=== PATIENT | female | born 1980 | race Two or more races ===

== ENCOUNTER 2017-10-18 13:51 | Inpatient (IN) | payer OTHER ==
[~2017-10-18] VITALS: Ht 160 cm; Wt 85.7 kg
[2017-10-18] MEDS ORDERED: PRENATAL TABLE1 EAC1 PO (15:44)
[2017-10-18] MEDS ORDERED: ASA81 MG PO (15:48)
== END 2017-10-19 14:02 | disposition home or self-care (01) | DRG 780 ==
LOC: LDR 13:51
PROC: 4A1HXCZ Monitoring of Products of Conception, Cardiac Rate, External Approach (ICD-10-PCS; principal; 2017-10-18)
DX: O47.03 False labor before 37 completed weeks of gestation, third trimester (principal); O14.03 Mild to moderate pre-eclampsia, third trimester; O24.410 Gestational diabetes mellitus in pregnancy, diet controlled

== ENCOUNTER 2017-11-06 12:21 | Inpatient (IN) | payer OTHER ==
[~2017-11-06] VITALS: Ht 160 cm; Wt 3.2 kg
[~2017-11-06 12:21] MED LIST: ASA81 MG PO; PRENATAL TABLE1 EAC1 PO
[2017-11-12] MEDS ORDERED: DOCUSATE SODIU100 MG PO (10:58)
[2017-11-12] MEDS ORDERED: NABUMETONE750 MG PO (10:58)
[2017-11-12] MEDS ORDERED: Ferro-Plex CAPLET PO (10:58)
[2017-11-12] MEDS ORDERED: ALDOMET500 MG PO (10:58)
== END 2017-11-12 14:07 | disposition home or self-care (01) | DRG 766 ==
LOC: OBS/DEL 12:21 → LDR 11-07 11:02 → OB/GYN 11-09 13:47
PROC: 10D00Z1 Extraction of Products of Conception, Low, Open Approach (ICD-10-PCS; principal; 2017-11-07)
PROC: 3E0P7VZ Introduction of Hormone into Female Reproductive, Via Natural or Artificial Opening (ICD-10-PCS; 2017-11-07)
PROC: 3E033VJ Introduction of Other Hormone into Peripheral Vein, Percutaneous Approach (ICD-10-PCS; 2017-11-07)
PROC: 4A1HXCZ Monitoring of Products of Conception, Cardiac Rate, External Approach (ICD-10-PCS; 2017-11-07)
DX: O61.0 Failed medical induction of labor (principal); O24.420 Gestational diabetes mellitus in childbirth, diet controlled; O13.4 Gestational [pregnancy-induced] hypertension without significant proteinuria, complicating childbirth; Z3A.38 38 weeks gestation of pregnancy; Z37.0 Single live birth; O09.513 Supervision of elderly primigravida, third trimester

== ENCOUNTER 2018-06-21 08:22 | Outpatient (CLI) | payer OTHER ==
[~2018-06-21 08:22] MED LIST changes: +ALDOMET500 MG PO; +DICLOFENAC POTA50 MG PO; +DOCUSATE SODIU100 MG PO; +Ferro-Plex CAPLET PO; +NABUMETONE750 MG PO
== END 2018-06-21 08:58 | disposition home or self-care (01) ==
LOC: NUCLEAR 08:22
DX: I87.2 Venous insufficiency (chronic) (peripheral) (principal)

== ENCOUNTER 2018-09-16 09:25 | Emergency (ER) | payer OTHER ==
[~2018-09-16] VITALS: Ht 160 cm; Wt 72.6 kg
== END 2018-09-16 15:46 | disposition home or self-care (01) ==
LOC: ER 09:25
DX: K29.70 Gastritis, unspecified, without bleeding (principal)

== ENCOUNTER → 2019-11-27 | Outpatient (CLI) | payer OTHER | END | disposition home or self-care (01) | LOC: PRENATAL 11-24 13:30 | PROVIDERS: ATTEND Obstetrics & Gynecology Maternal & Fetal Medicine | DX: O36.80X1 Pregnancy with inconclusive fetal viability, fetus 1 (principal); O09.521 Supervision of elderly multigravida, first trimester; O34.211 Maternal care for low transverse scar from previous cesarean delivery; Z36.89 Encounter for other specified antenatal screening; Z3A.14 14 weeks gestation of pregnancy ==

== ENCOUNTER → 2020-01-10 | Outpatient (CLI) | payer OTHER | END | disposition home or self-care (01) | LOC: PRENATAL 01-08 13:00 | PROVIDERS: ATTEND Obstetrics & Gynecology Maternal & Fetal Medicine | DX: O35.0XX1 Maternal care for (suspected) central nervous system malformation in fetus, fetus 1 (principal); O09.522 Supervision of elderly multigravida, second trimester; O34.211 Maternal care for low transverse scar from previous cesarean delivery; O35.3XX1 Maternal care for (suspected) damage to fetus from viral disease in mother, fetus 1; O98.512 Other viral diseases complicating pregnancy, second trimester; Z36.89 Encounter for other specified antenatal screening; Z3A.20 20 weeks gestation of pregnancy ==

== ENCOUNTER 2020-05-15 14:58 | Inpatient (IN) | payer OTHER ==
[~2020-05-15] VITALS: Ht 160 cm; Wt 3.2 kg
[2020-05-15] MEDS ORDERED: PRENATAL CAPLE1 EAC1 PO (17:32)
== END 2020-05-18 16:11 | disposition home or self-care (01) | DRG 785 ==
LOC: LDR 14:58 → OB/GYN 14:58 → O/R 18:18 → OB/GYN 19:18
PROVIDERS: ADMIT Obstetrics & Gynecology; ATTEND Obstetrics & Gynecology
PROC: 0UB70ZZ Excision of Bilateral Fallopian Tubes, Open Approach (ICD-10-PCS; 2020-05-15)
PROC: 4A1HXFZ Monitoring of Products of Conception, Cardiac Rhythm, External Approach (ICD-10-PCS; 2020-05-15)
PROC: 10D00Z1 Extraction of Products of Conception, Low, Open Approach (ICD-10-PCS; principal; 2020-05-15 17:15)
DX: O34.211 Maternal care for low transverse scar from previous cesarean delivery (principal); O13.4 Gestational [pregnancy-induced] hypertension without significant proteinuria, complicating childbirth; Z30.2 Encounter for sterilization; Z37.0 Single live birth; Z3A.38 38 weeks gestation of pregnancy; Z20.822 Contact with and (suspected) exposure to COVID-19

== ENCOUNTER 2021-10-07 08:49 | Outpatient (CLI) | payer OTHER ==
[~2021-10-07 08:49] MED LIST changes: +PRENATAL CAPLE1 EAC1 PO
== END 2021-10-07 08:57 | disposition home or self-care (01) ==
LOC: EKG 08:49
PROVIDERS: ATTEND Obstetrics & Gynecology
DX: R10.9 Unspecified abdominal pain (principal)